=== PATIENT | male | born 1990 | race Caucasian/White ===

== ENCOUNTER 2021-09-08 12:26 | Emergency (ER) | payer MEDICAID, OTHER ==
[~2021-09-08] VITALS: Ht 185.4 cm; Wt 78.0 kg
[2021-09-08 14:57] VITALS: BP 146/96
== END 2021-09-08 15:01 | disposition home or self-care (01) ==
LOC: ER 12:26
DX: G89.29 Other chronic pain (principal); M54.50 Low back pain, unspecified; I10 Essential (primary) hypertension

== ENCOUNTER 2021-09-21 22:36 | Emergency (ER) | payer MEDICAID ==
[~2021-09-21] VITALS: Ht 185.4 cm; Wt 79.4 kg
[2021-09-21 23:39] VITALS: BP 144/93
[2021-09-22 01:57] LABS: Basophils # (auto) 0.1 10 ^3/uL (0-0.2); Basophils % (auto) 0.5 % (0.0-2.0); Eosinophils # (auto) 0.1 10 ^3/uL (0-0.8); Eosinophils % (auto) 0.8 % (0.0-7.0); Hematocrit 46.6 % (41.0-53.0); Hemoglobin 15.5 g/dL (13.5-17.5); Lymphocytes % (auto) 31.4 % (10.0-50.0); Mean Corpuscular Hemoglobin 28.9 pg (28.0-32.0); Mean Corpuscular Hgb Conc. 33.3 g/dL (32.0-36.0); Mean Corpuscular Volume 86.7 fL (80.0-100.0); Monocytes # (auto) 0.6 10 ^3/uL (0-1.3); Monocytes % (auto) 6.1 % (0.0-12.0); Neutrophils # (auto) 5.9 10 ^3/uL (1.6-8.6); Neutrophils % (auto) 61.2 % (37.0-80.0); Nucleated Red Blood Cells % 0.1 %; Red Blood Cells 5.37 10^6/uL (4.5-5.90); Red Cell Distribution Width 13.8 % (11.8-14.3); White Blood Cell 9.6 10^3/uL (4.4-10.8)
[2021-09-22 02:20] LABS: Albumin 4.1 g/dL (3.4-5.0); BUN/Creatinine Ratio 18.3; Calcium 8.7 mg/dL (8.5-10.1); Potassium 3.8 mmol/L (3.5-5.1)
[2021-09-22 02:23] LABS: Bilirubin, Total 0.6 mg/dL (0.2-1.0); INR 1.04 (0.9-1.15); Total Protein 6.9 g/dL (6.4-8.2)
[2021-09-22] MEDS ORDERED: METHADONE HCL 10 MG TAB PO ONE (03:15)
== END 2021-09-22 04:36 | disposition home or self-care (01) ==
LOC: ER 22:36 → EDBD 22:36 → ER 09-22 04:36
DX: F11.23 Opioid dependence with withdrawal (principal); I10 Essential (primary) hypertension; G89.29 Other chronic pain
CPT/HCPCS: 36415; 80053; 82550; 83605; 85025; 85610